=== PATIENT | female | born 1995 | race Caucasian/White ===

== ENCOUNTER 2019-06-09 14:32 | Observation (INO) | payer OTHER ==
[2019-06-09] MEDS ORDERED: METF-370 PO (17:09)
[2019-06-09] MEDS ORDERED: PREN-96 PO (17:09)
== END 2019-06-09 15:50 | disposition home or self-care (01) | DRG 833 ==
LOC: LDRP 14:32
PROVIDERS: ADMIT Specialist; ATTEND Specialist
DX: O24.419 Gestational diabetes mellitus in pregnancy, unspecified control (principal); Z3A.30 30 weeks gestation of pregnancy
CPT/HCPCS: 76818; 82962; G0378; 59025; 81002

== ENCOUNTER 2019-06-13 13:12 | Observation (INO) | payer MEDICAID ==
[~2019-06-13] VITALS: Ht 170.2 cm; Wt 103.4 kg
[~2019-06-13 13:12] MED LIST: METF-370 PO; PREN-96 PO
== END 2019-06-13 14:32 | disposition home or self-care (01) | DRG 566 ==
LOC: LDRP 13:12
PROVIDERS: ADMIT Specialist; ATTEND Specialist
DX: O24.419 Gestational diabetes mellitus in pregnancy, unspecified control (principal); Z3A.31 31 weeks gestation of pregnancy; Z87.891 Personal history of nicotine dependence
CPT/HCPCS: 76818; 82962; G0378; 59025; 81002

== ENCOUNTER 2019-06-16 09:13 | Observation (INO) | payer MEDICAID | END 2019-06-16 10:41 | disposition home or self-care (01) | DRG 566 | LOC: LDRP 09:13 | PROVIDERS: ADMIT Specialist; ATTEND Specialist | DX: O00.01 Abdominal pregnancy with intrauterine pregnancy (principal); O24.419 Gestational diabetes mellitus in pregnancy, unspecified control; Z3A.31 31 weeks gestation of pregnancy; Z87.891 Personal history of nicotine dependence | CPT/HCPCS: 59025; 76818; 81002; 82948; 82962; G0378 ==

== ENCOUNTER 2019-06-21 19:00 | Observation (INO) | payer MEDICAID | END 2019-06-21 20:55 | disposition home or self-care (01) | DRG 566 | LOC: LDRP 19:00 | PROVIDERS: ADMIT Obstetrics & Gynecology; ATTEND Obstetrics & Gynecology | DX: O24.419 Gestational diabetes mellitus in pregnancy, unspecified control (principal); Z3A.32 32 weeks gestation of pregnancy; Z87.891 Personal history of nicotine dependence | CPT/HCPCS: 76818; 82962; G0378; 59025; 81002; 82948 ==

== ENCOUNTER 2019-06-24 09:03 | Observation (INO) | payer MEDICAID | END 2019-06-24 11:15 | disposition home or self-care (01) | DRG 566 | LOC: LDRP 10:34 | PROVIDERS: ADMIT Obstetrics & Gynecology; ATTEND Obstetrics & Gynecology | DX: O24.419 Gestational diabetes mellitus in pregnancy, unspecified control (principal); Z3A.33 33 weeks gestation of pregnancy; Z87.891 Personal history of nicotine dependence | CPT/HCPCS: 59025; 76818; 81002; G0378 ==

== ENCOUNTER 2019-07-01 08:15 | Observation (INO) | payer MEDICAID | END 2019-07-01 10:38 | disposition home or self-care (01) | DRG 566 | LOC: LDRP 09:00 | PROVIDERS: ADMIT Obstetrics & Gynecology; ATTEND Obstetrics & Gynecology | DX: O24.419 Gestational diabetes mellitus in pregnancy, unspecified control (principal); Z3A.34 34 weeks gestation of pregnancy; Z87.891 Personal history of nicotine dependence | CPT/HCPCS: 59025; 76818; 81002; 82948; 82962; G0378 ==

== ENCOUNTER 2019-07-05 08:29 | Observation (INO) | payer MEDICAID | END 2019-07-05 11:25 | disposition home or self-care (01) | DRG 566 | LOC: LDRP 10:45 | PROVIDERS: ADMIT Specialist; ATTEND Specialist | DX: O24.419 Gestational diabetes mellitus in pregnancy, unspecified control (principal); Z3A.34 34 weeks gestation of pregnancy; Z87.891 Personal history of nicotine dependence | CPT/HCPCS: 59025; 76818; 81002; 82962; G0378 ==

== ENCOUNTER 2019-07-08 10:38 | Observation (INO) | payer MEDICAID | END 2019-07-08 13:50 | disposition home or self-care (01) | DRG 566 | LOC: LDRP 10:38 | PROVIDERS: ADMIT Specialist; ATTEND Specialist | DX: O24.419 Gestational diabetes mellitus in pregnancy, unspecified control (principal); O40.3XX0 Polyhydramnios, third trimester, not applicable or unspecified; Z3A.35 35 weeks gestation of pregnancy; Z87.891 Personal history of nicotine dependence | CPT/HCPCS: 59025; 76818; 81002; 82962; G0378 ==

== ENCOUNTER 2019-07-12 10:19 | Observation (INO) | payer MEDICAID | END 2019-07-13 09:50 | disposition home or self-care (01) | DRG 566 | LOC: LDRP 07-13 08:11 | PROVIDERS: ADMIT Obstetrics & Gynecology; ATTEND Obstetrics & Gynecology | DX: O24.419 Gestational diabetes mellitus in pregnancy, unspecified control (principal); Z3A.35 35 weeks gestation of pregnancy | CPT/HCPCS: 59025; 76818; 81002; 82948; 82962; G0378 ==

== ENCOUNTER 2019-07-16 10:50 | Observation (INO) | payer MEDICAID | END 2019-07-16 12:10 | disposition home or self-care (01) | DRG 566 | LOC: LDRP 10:50 | PROVIDERS: ADMIT Specialist; ATTEND Specialist | DX: O40.3XX0 Polyhydramnios, third trimester, not applicable or unspecified (principal); Z3A.36 36 weeks gestation of pregnancy; Z87.891 Personal history of nicotine dependence | CPT/HCPCS: 59025; 76818; 81002; G0378 ==

== ENCOUNTER 2019-07-19 18:15 | Observation (INO) | payer MEDICAID | END 2019-07-19 19:23 | disposition home or self-care (01) | DRG 566 | LOC: LDRP 18:15 | PROVIDERS: ADMIT Obstetrics & Gynecology; ATTEND Obstetrics & Gynecology | DX: O24.419 Gestational diabetes mellitus in pregnancy, unspecified control (principal); Z3A.36 36 weeks gestation of pregnancy | CPT/HCPCS: 59025; 76818; 81002; 82948; 82962; G0378 ==

== ENCOUNTER 2019-07-21 13:31 | Observation (INO) | payer MEDICAID | END 2019-07-21 18:44 | disposition left against medical advice (07) | DRG 566 | LOC: LDRP 13:31 | PROVIDERS: ADMIT Obstetrics & Gynecology; ATTEND Obstetrics & Gynecology | DX: O24.419 Gestational diabetes mellitus in pregnancy, unspecified control (principal); Z3A.36 36 weeks gestation of pregnancy; Z87.891 Personal history of nicotine dependence | CPT/HCPCS: G0378 ×2 ==

== ENCOUNTER 2019-07-23 13:45 | Observation (INO) | payer MEDICAID | END 2019-07-23 15:35 | disposition home or self-care (01) | DRG 566 | LOC: LDRP 13:45 | PROVIDERS: ADMIT Obstetrics & Gynecology; ATTEND Obstetrics & Gynecology | DX: O24.419 Gestational diabetes mellitus in pregnancy, unspecified control (principal); Z3A.37 37 weeks gestation of pregnancy; Z87.891 Personal history of nicotine dependence | CPT/HCPCS: 59025; 76818; 81002; G0378 ==

== ENCOUNTER 2019-07-23 20:10 | Observation (INO) | payer MEDICAID ==
[~2019-07-23] VITALS: Ht 170.2 cm; Wt 101.6 kg
== END 2019-07-23 20:55 | disposition home or self-care (01) | DRG 566 ==
LOC: LDRP 20:10
PROVIDERS: ADMIT Obstetrics & Gynecology; ATTEND Obstetrics & Gynecology
DX: O42.92 Full-term premature rupture of membranes, unspecified as to length of time between rupture and onset of labor (principal); O26.893 Other specified pregnancy related conditions, third trimester; N89.8 Other specified noninflammatory disorders of vagina; Z3A.37 37 weeks gestation of pregnancy
CPT/HCPCS: 59025; 81002; G0378

== ENCOUNTER 2019-07-28 10:27 | Observation (INO) | payer MEDICAID | END 2019-07-28 11:50 | disposition home or self-care (01) | DRG 566 | LOC: LDRP 10:27 | PROVIDERS: ADMIT Obstetrics & Gynecology; ATTEND Obstetrics & Gynecology | DX: O24.419 Gestational diabetes mellitus in pregnancy, unspecified control (principal); O26.893 Other specified pregnancy related conditions, third trimester; N89.8 Other specified noninflammatory disorders of vagina; Z3A.37 37 weeks gestation of pregnancy; Z87.891 Personal history of nicotine dependence | CPT/HCPCS: 59025; 76818; 82948; G0378 ==

== ENCOUNTER 2019-08-01 11:26 | Observation (INO) | payer MEDICAID | END 2019-08-01 12:44 | disposition home or self-care (01) | DRG 566 | LOC: LDRP 11:26 | PROVIDERS: ADMIT Obstetrics & Gynecology; ATTEND Obstetrics & Gynecology | DX: O24.419 Gestational diabetes mellitus in pregnancy, unspecified control (principal); Z3A.38 38 weeks gestation of pregnancy; Z87.891 Personal history of nicotine dependence | CPT/HCPCS: 59025; 76818; 81002; 82948; 82962; G0378 ==

== ENCOUNTER 2019-08-04 11:25 | Observation (INO) | payer MEDICAID | END 2019-08-04 12:45 | disposition home or self-care (01) | DRG 566 | LOC: LDRP 11:25 | PROVIDERS: ADMIT Specialist; ATTEND Specialist | DX: O24.419 Gestational diabetes mellitus in pregnancy, unspecified control (principal); Z3A.38 38 weeks gestation of pregnancy; Z87.891 Personal history of nicotine dependence | CPT/HCPCS: 59025; 76818; 81002; 82948; 82962; G0378 ==

== ENCOUNTER 2019-08-05 21:08 | Observation (INO) | payer MEDICAID ==
[~2019-08-05] VITALS: Ht 167.6 cm; Wt 101.6 kg
[2019-08-06] MEDS ORDERED: LIDOCAINE 2%HCL (LOCAL ANESTH.) INJ 20ML MDV ONE (00:55)
[2019-08-06] MEDS ORDERED: DERMOPLAST 60ML BOTTLE TOP ONE (00:56)
[2019-08-06] MEDS ORDERED: PHISODERM TOP SOLN 240ML BTL TOP ONE (00:56)
[2019-08-06] MEDS ORDERED: WITCH HAZEL-GLYCERIN PAD TOP ONE (00:56)
[2019-08-06] MEDS ORDERED: LACT. RINGERS/OXYTOCIN 20UNITS 1,000 ML IV ONE (00:56)
[2019-08-06] MEDS ORDERED: METHYLERGONOVINE MALEATE 0.2 MG/ML AMP IM ONE (00:56)
[2019-08-06] MEDS ORDERED: PENICILLIN G POT 5MIL/D5 50ML 50 ML IV ONE (00:57)
== END 2019-08-05 22:34 | disposition home or self-care (01) | DRG 566 ==
LOC: LDRP 21:08
PROVIDERS: ADMIT Obstetrics & Gynecology; ATTEND Obstetrics & Gynecology
DX: O62.9 Abnormality of forces of labor, unspecified (principal); Z3A.39 39 weeks gestation of pregnancy
CPT/HCPCS: 59025; 81002; 82948; 82962; G0378

== ENCOUNTER 2019-08-06 00:50 | Inpatient (IN) | payer MEDICAID ==
[~2019-08-06] VITALS: Ht 167.6 cm; Wt 101.6 kg
[2019-08-06] MEDS: LACTATED RINGER'S 1,000 ML IV SCH (00:58)
[2019-08-06] MEDS ORDERED: LACT. RINGERS/OXYTOCIN 20UNITS 1,000 ML IV SCH (01:52)
[2019-08-06] MEDS ORDERED: PHISODERM TOP SOLN 240ML BTL TOP PRN (02:00)
[2019-08-06] MEDS ORDERED: ACETAMINOPHEN 325 MG TAB PO PRN (02:00)
[2019-08-06] MEDS ORDERED: WITCH HAZEL-GLYCERIN PAD TOP PRN (02:00)
[2019-08-06] MEDS ORDERED: LIDOCAINE 2%HCL (LOCAL ANESTH.) INJ 20ML MDV ID PRN (02:00)
[2019-08-06] MEDS ORDERED: DERMOPLAST 60ML BOTTLE TOP PRN (02:00)
[2019-08-06] MEDS ORDERED: PENICILLIN G POT 5MIL/D5 50ML 50 ML IV ONE (02:00)
[2019-08-06] MEDS: IBUPROFEN 600 MG TAB PO PRN ×2 (02:30→17:25)
[2019-08-06] MEDS ORDERED: METHYLERGONOVINE MALEATE 0.2 MG/ML AMP IM ONE (02:45)
--- NOTE | 2019-08-06 03:00 | NUR ---
Ambulation: Patient OOB with standby assistance by RN. Patient ambulated to bathroom with steady gait. Patient able to void without difficulty, voided 450 ml. [facility] teaching provided with returned demonstration by patient. Clean gown provided and bed linen changed. Patient ambulated back to bed with steady gait and no distress noted.
[2019-08-06 03:07] LABS: Basophils # (auto) 0 uL; Basophils % (auto) 0.3 % (0.0-2.0); Eosinophils # (auto) 0 uL; Eosinophils % (auto) 0.1 % (0.0-7.0); Hemoglobin 14.2 g/dL (12.2-16.2); Lymphocytes # (auto) 1.2 uL; Neutrophils # (auto) 10.9 uL; Red Cell Distribution Width 13.4 % (11.8-14.3); White Blood Cell 12.6 10^3/uL (4.4-10.8)
[2019-08-06 03:09] LABS: Hematocrit 40.7 % (36.0-46.0); Lymphocytes % (auto) 9.2 % (10.0-50.0); Mean Corpuscular Hemoglobin 34.3 pg (28.0-32.0); Mean Corpuscular Hgb Conc. 34.8 g/dL (32.0-36.0); Mean Corpuscular Volume 98.6 fL (80.0-100.0); Monocytes # (auto) 0.4 uL; Monocytes % (auto) 3.6 % (0.0-12.0); Neutrophils % (auto) 86.8 % (37.0-80.0); Nucleated Red Blood Cells % 0.1 %; Platelet Count (auto) 127 10^3/uL (140-450); Red Blood Cells 4.13 10^6/uL (4.0-5.20)
[2019-08-06 03:22] LABS: Albumin 2.8 g/dL (3.4-5.0); BUN/Creatinine Ratio 13.2; Calcium 8.2 mg/dL (8.5-10.1); Potassium 3.2 mmol/L (3.5-5.1)
[2019-08-06 03:23] LABS: INR < 0.93 (0.9-1.15); Partial Thromboplastin Time 25.2 sec (23.64-32.05)
[2019-08-06 03:25] LABS: Bilirubin, Total 0.5 mg/dL (0.2-1.0); Total Protein 6.5 g/dL (6.4-8.2)
--- NOTE | 2019-08-06 03:45 | NUR ---
Received report from Liat Birmingham RN and assumed care of female patient post vaginal delivery
[2019-08-06] MEDS ORDERED: RHO (D) IMMUNE GLOBULIN 300 MCG INJ IM ONE (04:00)
[2019-08-06 07:30] VITALS: BP 107/60
[2019-08-06] MEDS: ACCU-CHEK COMFORT CURVE STRIP VI SCH ×3 (07:49→17:27)
--- NOTE | 2019-08-06 07:53 | NUR ---
DR. REECE NOTIFIED OF PTS AM BLOOD SUGAR OF 90MG/DL. ORDERS RECEIVED FROM DR. REECE FOR BLOOD GLUCOSE CHECKS EVERY AM AND PM. READ BACK AND VERIFIED ORDERS. WILL CARRY OUT.
[2019-08-06 11:00] VITALS: BP 105/56
--- NOTE | 2019-08-06 12:46 | NUR ---
IV removal- Patient states IV is hurting her. requesting to have it out. IV DC'd with sterile technique, catheter fully intact. Pressure dressing applied to site. Patient tolerated procedure well. Discharged with aftercare instructions per MD. NOTE:
[2019-08-06 15:00] VITALS: BP 110/56
[2019-08-06 15:34] LABS: Urine Bacteria NONE SEEN /hpf (None Seen); Urine Blood 3+ /uL (Negative); Urine Mucus FEW (None Seen); Urine Specific Gravity 1.017 (1.001-1.035); Urine WBC 115 /hpf (0 - 5)
[2019-08-06 15:35] LABS: Alcohol, Urine < 3.0 mg/dL (0-5); Amphetamine Screen, Urine NEGATIVE (NEGATIVE); Barbiturate Scree,Urine NEGATIVE (NEGATIVE); Benzodiazephine Screen, Urine NEGATIVE (NEGATIVE); Cannabinoid Screen, Urine NEGATIVE (NEGATIVE); Opiate Scree,Urine NEGATIVE (NEGATIVE); Phencyclidine Screen, Urine NEGATIVE (NEGATIVE)
[2019-08-06 15:58] LABS: Cocaine Screen, Urine NEGATIVE (NEGATIVE)
[2019-08-06 19:00] VITALS: BP 115/59
[2019-08-06] MEDS ORDERED: TETANUS-DIPTH-ACEL PERTUSSIS 0.5ML SYRG IM ONE (20:00)
[2019-08-06 22:30] VITALS: BP 105/60
[2019-08-07] MEDS: IBUPROFEN 600 MG TAB PO PRN (00:02)
[2019-08-07 03:30] VITALS: BP 106/58
[2019-08-07 06:09] LABS: RPR Non Reactive (Non Reactive)
[2019-08-07 07:12] VITALS: BP 105/68
[2019-08-07] MEDS: ACCU-CHEK COMFORT CURVE STRIP VI SCH (07:38)
--- NOTE | 2019-08-07 08:45 | NUR ---
DR. REECE IN ROOM [address] REECE NOTIFIED OF AM BLOOD GLUCOSE OF 86MG/DL. ORDERS RECEIVED FROM DR. REECE TO STOP BLOOD SUGAR CHECKS, PATIENT TO DISCONTINUE METFORMIN MEDICATION AND PATIENT CAN BE DISCHARGED HOME. READ BACK AND VERIFIED ORDERS. WILL CARRY OUT.
[2019-08-07 11:27] VITALS: BP 108/68
--- NOTE | 2019-08-07 12:30 | NUR ---
Discharge: Discharge instructions given as ordered. Pt encouraged to follow up with ATHLETIC TEAM PHYSICIAN as instructed. All questions and concerns addressed. Patient verbalized understanding. Medication reconciliation completed and copy given to patient. All required/requested vaccines given and copies of vaccinations given to patient. Patient encouraged to prepare to depart unit.
--- NOTE | 2019-08-07 13:15 | NUR ---
Discharge: Patient taken to vehicle ambulatory via steady gait, pt declined wheelchair with all personal belongings, accompanied by staff and family member. No distress noted at time of departure, no adverse changes in status since initial assessment.
== END 2019-08-07 13:15 | disposition home or self-care (01) | DRG 560 ==
LOC: OBSVTOIN 00:50 → LDRP 00:50
PROVIDERS: ADMIT Obstetrics & Gynecology; ATTEND Obstetrics & Gynecology
PROC: 10E0XZZ Delivery of Products of Conception, External Approach (ICD-10-PCS; principal; 2019-08-06)
PROC: 0KQM0ZZ Repair Perineum Muscle, Open Approach (ICD-10-PCS; 2019-08-06)
PROC: 0UQMXZZ Repair Vulva, External Approach (ICD-10-PCS; 2019-08-06)
PROC: 3E0234Z Introduction of Serum, Toxoid and Vaccine into Muscle, Percutaneous Approach (ICD-10-PCS; 2019-08-06)
DX: O77.0 Labor and delivery complicated by meconium in amniotic fluid (principal); O24.429 Gestational diabetes mellitus in childbirth, unspecified control; O62.3 Precipitate labor; O70.1 Second degree perineal laceration during delivery; O26.893 Other specified pregnancy related conditions, third trimester; O71.82 Other specified trauma to perineum and vulva; O99.824 Streptococcus B carrier state complicating childbirth; Z37.0 Single live birth; Z3A.39 39 weeks gestation of pregnancy; Z67.40 Type O blood, Rh positive
CPT/HCPCS: 36415; 59025; 59409; 80053; 80307; 81001; 81002; 82962; 84112; 85025; 85610; 85730; 86592; 86850; 86900; 86901; 90384; 90472; 90715; 96365; 96366; 96372; G0378

== ENCOUNTER 2020-12-09 17:25 | Observation (INO) | payer MEDICAID ==
[~2020-12-09] VITALS: Ht 170.2 cm; Wt 108.9 kg
[~2020-12-09 17:25] MED LIST changes: -METF-370 PO
[2020-12-09] MEDS ORDERED: BETAMETHASONE ACET (6MG/ML) 5ML VIAL IM SCH (18:15)
[2020-12-09] MEDS: TERBUTALINE SULFATE 1 MG/ML 1ML VIAL SC SCH ×3 (18:36→19:15)
[2020-12-09 19:43] LABS: Urine Bacteria NONE SEEN /hpf (None Seen); Urine Blood Negative /uL (Negative); Urine Budding Yeast FEW /hpf (None Seen); Urine Specific Gravity 1.011 (1.001-1.035); Urine WBC 5 /hpf (0 - 5)
[2020-12-09] MEDS ORDERED: SODIUM CITR/CITRIC ACID ORAL SOLN 30 ML PO SCH (19:45)
[2020-12-09] MEDS ORDERED: NIFEdipine 10 MG CAP PO ONE (19:45)
[2020-12-09 19:55] LABS: Amphetamine Screen, Urine NEGATIVE (NEGATIVE); Barbiturate Scree,Urine NEGATIVE (NEGATIVE); Benzodiazephine Screen, Urine NEGATIVE (NEGATIVE); Cannabinoid Screen, Urine NEGATIVE (NEGATIVE); Cocaine Screen, Urine NEGATIVE (NEGATIVE); Opiate Scree,Urine NEGATIVE (NEGATIVE); Phencyclidine Screen, Urine NEGATIVE (NEGATIVE)
[2020-12-09] MEDS ORDERED: NIF10C PO (20:47)
== END 2020-12-09 21:00 | disposition home or self-care (01) ==
LOC: LDRP 17:25
PROVIDERS: ADMIT Obstetrics & Gynecology; ATTEND Obstetrics & Gynecology
DX: O60.03 Preterm labor without delivery, third trimester (principal); Z3A.36 36 weeks gestation of pregnancy; Z79.899 Other long term (current) drug therapy
CPT/HCPCS: 59025; 80307; 81001; 81002; 94760; 96372; G0378; J0702; J3105

== ENCOUNTER 2020-12-10 06:06 | Observation (INO) | payer MEDICAID ==
[~2020-12-10] VITALS: Ht 170.2 cm; Wt 111.6 kg
[~2020-12-10 06:06] MED LIST changes: +NIF10C PO
[2020-12-10] MEDS ORDERED: LACTATED RINGER'S 1,000 ML IV ONE (07:45)
[2020-12-10] MEDS ORDERED: TERBUTALINE SULFATE 1 MG/ML 1ML VIAL SC ONE (08:30)
[2020-12-10] MEDS ORDERED: NIFEdipine 10 MG CAP PO ONE (09:00)
[2020-12-10 10:56] LABS: Basophils # (auto) 0 10 ^3/uL (0-0.2); Basophils % (auto) 0.1 % (0.0-2.0); Eosinophils # (auto) 0 10 ^3/uL (0-0.8); Hematocrit 36.7 % (36.0-46.0); Hemoglobin 12.5 g/dL (12.2-16.2); Lymphocytes # (auto) 1.3 10 ^3/uL (0.4-5.4); Lymphocytes % (auto) 13.5 % (10.0-50.0); Mean Corpuscular Hemoglobin 33.9 pg (28.0-32.0); Mean Corpuscular Hgb Conc. 34.1 g/dL (32.0-36.0); Mean Corpuscular Volume 99.4 fL (80.0-100.0); Monocytes # (auto) 0.6 10 ^3/uL (0-1.3); Monocytes % (auto) 6.2 % (0.0-12.0); Neutrophils # (auto) 7.7 10 ^3/uL (1.6-8.6); Neutrophils % (auto) 80.2 % (37.0-80.0); Nucleated Red Blood Cells % 0.2 %; Platelet Count (auto) 138 10^3/uL (140-450); Red Blood Cells 3.69 10^6/uL (4.0-5.20); White Blood Cell 9.7 10^3/uL (4.4-10.8)
[2020-12-10 11:03] LABS: INR 1.02 (0.9-1.15); Partial Thromboplastin Time 24.2 sec (23.0-31.2)
[2020-12-10 11:09] LABS: Albumin 2.6 g/dL (3.4-5.0); Calcium 8.8 mg/dL (8.5-10.1); Potassium 3.1 mmol/L (3.5-5.1)
[2020-12-10 11:12] LABS: BUN/Creatinine Ratio 9.2; Bilirubin, Total 0.6 mg/dL (0.2-1.0); Total Protein 6.3 g/dL (6.4-8.2)
[2020-12-10] MEDS ORDERED: BETAMETHASONE ACET (6MG/ML) 5ML VIAL IM ONE (13:00)
[2020-12-10] MEDS ORDERED: POTASSIUM CHL 20 Meq TABLET PO ONE (13:00)
[2020-12-11 06:06] LABS: RPR Non Reactive (Non Reactive)
== END 2020-12-10 14:38 | disposition home or self-care (01) ==
LOC: LDRP 06:06
PROVIDERS: ADMIT Obstetrics & Gynecology; ATTEND Obstetrics & Gynecology
DX: O62.9 Abnormality of forces of labor, unspecified (principal); Z20.828 Contact with and (suspected) exposure to other viral communicable diseases; Z3A.36 36 weeks gestation of pregnancy; Z79.899 Other long term (current) drug therapy
CPT/HCPCS: 36415; 59025; 80053; 81002; 85025; 85610; 85730; 86592; 86850; 86870; 86900; 86901; 87426; 96360; 96372; G0378; J0702; J3105; U0003

== ENCOUNTER 2020-12-25 12:20 | Observation (INO) | payer MEDICAID ==
[~2020-12-25] VITALS: Ht 170.2 cm; Wt 103.4 kg
== END 2020-12-25 13:30 | disposition home or self-care (01) ==
LOC: LDRP 12:20
PROVIDERS: ADMIT Obstetrics & Gynecology; ATTEND Obstetrics & Gynecology
DX: O62.9 Abnormality of forces of labor, unspecified (principal); Z3A.39 39 weeks gestation of pregnancy
CPT/HCPCS: 59025; 81002; G0378

== ENCOUNTER 2020-12-26 12:00 | Inpatient (IN) | payer MEDICAID ==
[~2020-12-26] VITALS: Ht 170.2 cm; Wt 114.3 kg
[2020-12-26] MEDS ORDERED: WITCH HAZEL-GLYCERIN PAD TOP PRN (12:45)
[2020-12-26] MEDS ORDERED: BUTORPHANOL TARTRATE 2 MG/1 ML VIAL IV PRN (12:45)
[2020-12-26] MEDS ORDERED: PENICILLIN G POT 5MIL/D5 50ML 50 ML IV ONE (12:45)
[2020-12-26] MEDS ORDERED: RHO (D) IMMUNE GLOBULIN 300 MCG INJ IM ONE (12:45)
[2020-12-26] MEDS ORDERED: LACTATED RINGER'S 1,000 ML IV SCH (12:45)
[2020-12-26] MEDS ORDERED: DERMOPLAST 60ML BOTTLE TOP PRN (12:45)
[2020-12-26] MEDS ORDERED: PHISODERM TOP SOLN 240ML BTL TOP PRN (12:45)
[2020-12-26] MEDS ORDERED: LIDOCAINE 2%HCL (LOCAL ANESTH.) INJ 20ML MDV IJ ONE ×2 (12:45→13:30)
[2020-12-26] MEDS ORDERED: LACT. RINGERS/OXYTOCIN 20UNITS 1,000 ML IV ONE (13:00)
[2020-12-26] MEDS ORDERED: LACT. RINGERS/OXYTOCIN 20UNITS 1,000 ML IV SCH (13:00)
[2020-12-26 13:20] LABS: Basophils # (auto) 0 10 ^3/uL (0-0.2); Basophils % (auto) 0.4 % (0.0-2.0); Eosinophils # (auto) 0.1 10 ^3/uL (0-0.8); Eosinophils % (auto) 0.8 % (0.0-7.0); Hematocrit 36.3 % (36.0-46.0); Hemoglobin 12.5 g/dL (12.2-16.2); Lymphocytes # (auto) 2.1 10 ^3/uL (0.4-5.4); Lymphocytes % (auto) 25.7 % (10.0-50.0); Mean Corpuscular Hemoglobin 33.9 pg (28.0-32.0); Mean Corpuscular Hgb Conc. 34.3 g/dL (32.0-36.0); Mean Corpuscular Volume 98.8 fL (80.0-100.0); Monocytes # (auto) 0.4 10 ^3/uL (0-1.3); Monocytes % (auto) 5.3 % (0.0-12.0); Neutrophils # (auto) 5.7 10 ^3/uL (1.6-8.6); Neutrophils % (auto) 67.8 % (37.0-80.0); Nucleated Red Blood Cells % 0.1 %; Platelet Count (auto) 129 10^3/uL (140-450); Red Blood Cells 3.67 10^6/uL (4.0-5.20); Red Cell Distribution Width 13.2 % (11.8-14.3); White Blood Cell 8.3 10^3/uL (4.4-10.8)
[2020-12-26] MEDS ORDERED: ROPIVACAINE HCL 100 ML EPI SCH (13:30)
[2020-12-26] MEDS ORDERED: NALOXONE HCL 0.4 MG/ML VIAL IV ONE ×2 (13:30→14:30)
[2020-12-26] MEDS ORDERED: ePHEDrine SULFATE 50 MG/ML AMP IV ONE ×2 (13:30→14:30)
[2020-12-26] MEDS ORDERED: fentaNYL CITRATE 100 MCG/2 ML VL IV ONE ×2 (13:30→14:30)
[2020-12-26] MEDS ORDERED: LACTATED RINGER'S 500 ML IV ONE (13:30)
[2020-12-26 13:35] LABS: Urine Bacteria FEW /hpf (None Seen); Urine Blood Negative /uL (Negative); Urine Specific Gravity 1.006 (1.001-1.035); Urine WBC 25 /hpf (0 - 5)
[2020-12-26 13:35] LABS: INR 0.94 (0.9-1.15); Partial Thromboplastin Time 25.4 sec (23.0-31.2)
[2020-12-26 13:44] LABS: Albumin 2.5 g/dL (3.4-5.0); Calcium 8.3 mg/dL (8.5-10.1); Potassium 3.6 mmol/L (3.5-5.1)
[2020-12-26] MEDS ORDERED: ROPIVACAINE HCL 200 ML EPI SCH ×3 (13:45→14:30)
[2020-12-26 13:47] LABS: BUN/Creatinine Ratio 10.8; Bilirubin, Total 0.4 mg/dL (0.2-1.0); Total Protein 6.3 g/dL (6.4-8.2)
[2020-12-26 13:53] LABS: Alcohol, Urine < 3.0 mg/dL (0-10); Amphetamine Screen, Urine NEGATIVE (NEGATIVE); Barbiturate Scree,Urine NEGATIVE (NEGATIVE); Benzodiazephine Screen, Urine NEGATIVE (NEGATIVE); Cannabinoid Screen, Urine NEGATIVE (NEGATIVE); Cocaine Screen, Urine NEGATIVE (NEGATIVE); Opiate Scree,Urine NEGATIVE (NEGATIVE); Phencyclidine Screen, Urine NEGATIVE (NEGATIVE)
[2020-12-26] MEDS ORDERED: LIDOCAINE HCL 2 %PF INJ 10ML AMP IJ ONE ×2 (14:00→14:30)
[2020-12-26] MEDS ORDERED: LACTATED RINGER'S 1,000 ML IV ONE (14:30)
[2020-12-26] MEDS ORDERED: METHYLERGONOVINE MALEATE 0.2 MG/ML AMP IM ONE (16:23)
[2020-12-26] MEDS ORDERED: PENICILLIN G POTASSIUM 2,500,000 UNITS in D5W 5% 50 ML IV SCH (16:45)
[2020-12-26] MEDS ORDERED: ACETAMINOPHEN 325 MG TAB PO PRN (17:00)
[2020-12-26 19:00] VITALS: BP 116/65
[2020-12-26] MEDS: IBUPROFEN 600 MG TAB PO PRN (20:19)
[2020-12-26 22:37] VITALS: BP 116/68
[2020-12-27 03:00] VITALS: BP 108/57
[2020-12-27 07:06] LABS: RPR Non Reactive (Non Reactive)
[2020-12-27 07:15] VITALS: BP 121/61
[2020-12-27] MEDS: IBUPROFEN 600 MG TAB PO PRN ×2 (07:37→16:58)
[2020-12-27 11:15] VITALS: BP 113/59
[2020-12-27 14:47] VITALS: BP 118/68
[2020-12-27 18:30] VITALS: BP 111/65
== END 2020-12-27 18:48 | disposition home or self-care (01) | DRG 560 ==
LOC: LDRP 12:00 → OBSVTOIN 12:35 → LDRP 14:15
PROVIDERS: ADMIT Obstetrics & Gynecology; ATTEND Obstetrics & Gynecology
PROC: 10E0XZZ Delivery of Products of Conception, External Approach (ICD-10-PCS; principal; 2020-12-26)
PROC: 10907ZC Drainage of Amniotic Fluid, Therapeutic from Products of Conception, Via Natural or Artificial Opening (ICD-10-PCS; 2020-12-26)
PROC: 0HQ9XZZ Repair Perineum Skin, External Approach (ICD-10-PCS; 2020-12-26)
PROC: 3E0R3BZ Introduction of Anesthetic Agent into Spinal Canal, Percutaneous Approach (ICD-10-PCS; 2020-12-26)
PROC: 00HU33Z Insertion of Infusion Device into Spinal Canal, Percutaneous Approach (ICD-10-PCS; 2020-12-26)
DX: O69.81X0 Labor and delivery complicated by cord around neck, without compression, not applicable or unspecified (principal); O70.0 First degree perineal laceration during delivery; O99.824 Streptococcus B carrier state complicating childbirth; O26.893 Other specified pregnancy related conditions, third trimester; Z67.41 Type O blood, Rh negative; Z3A.38 38 weeks gestation of pregnancy; Z37.0 Single live birth; Z20.822 Contact with and (suspected) exposure to COVID-19
CPT/HCPCS: 59025; 59409; 62282; 80053; 80307; 81001; 81002; 85610; 85730; 86592; 86850; 86900; 86901; 87426; 90384; 94760; 96360; 96361; 96365; 96366; G0378; J2540; J2590; J7060